=== PATIENT | male | born 1960 | race Caucasian/White ===

== ENCOUNTER → 2021-10-21 13:05 | Emergency (ER) | payer SELFPAY | END | disposition home or self-care (01) | LOC: ER1 13:05 | DX: A18 Tuberculosis of other organs (principal); H26.9 Unspecified cataract; F17.210 Nicotine dependence, cigarettes, uncomplicated; Z88.0 Allergy status to penicillin; Z88.6 Allergy status to analgesic agent | CPT/HCPCS: 71045; 99283 ==